=== PATIENT | male | born 1975 | race African-American/Black ===

== ENCOUNTER 2022-04-24 22:08 | Emergency (ER) | payer OTHER ==
[~2022-04-24] VITALS: Ht 172.7 cm; Wt 109.0 kg
[~2022-04-24 22:08] MED LIST: BENADRYL
[2022-04-24 23:39] VITALS: BP 144/88
[2022-04-24] MEDS ORDERED: TETANUS, DIPHTHERIA, PERTUSSIS VAC/PF 0.5ML (>10YR OLD) IM ONE (23:45)
[2022-04-25] MEDS ORDERED: TETANUS, DIPHTHERIA, PERTUSSIS VAC/PF 0.5ML (>10YR OLD) IM ONE (02:00)
[2022-04-25 05:25] LABS: CLARITY URINE CLEAR (CLEAR); COLOR URINE YELLOW (YELLOW); PH URINE 5.5 (4.5-8.0); SPECIFIC GRAVITY URINE 1.018 (1.005-1.030)
[2022-04-25 05:26] LABS: KETONES URINE TRACE (NEGATIVE); LEUKOCYTE ESTERASE URINE NEGATIVE (NEGATIVE); NITRITE URINE NEGATIVE (NEGATIVE); OCCULT BLOOD URINE NEGATIVE (NEGATIVE); PROTEIN URINE NEGATIVE (NEGATIVE); UROBILINOGEN URINE 0.2 E.U./dL (0.2-1.0)
== END 2022-04-25 03:00 | disposition home or self-care (01) ==
LOC: ER 22:08
DX: S90.02XA Contusion of left ankle, initial encounter (principal); S30.812A Abrasion of penis, initial encounter; X58.XXXA Exposure to other specified factors, initial encounter; Y93.89 Activity, other specified; Y92.9 Unspecified place or not applicable
CPT/HCPCS: 73610; 73630; 81003; 90471; 90715; 99284

== ENCOUNTER 2023-10-16 07:08 | Emergency (ER) | payer MEDICAID, OTHER ==
[~2023-10-16] VITALS: Ht 167.6 cm; Wt 111.0 kg
[2023-10-16 07:31] VITALS: BP 162/105; PULSE 85; RESP 18; TEMP 97.9; O2SAT 96
[2023-10-16] MEDS ORDERED: NAPR500T7 MT (08:21)
== END 2023-10-16 09:15 | disposition home or self-care (01) ==
LOC: ER 07:08
DX: M25.511 Pain in right shoulder (principal); M79.601 Pain in right arm; F12.10 Cannabis abuse, uncomplicated; E11.9 Type 2 diabetes mellitus without complications; I10 Essential (primary) hypertension; V49.40XA Driver injured in collision with unspecified motor vehicles in traffic accident, initial encounter; Y93.89 Activity, other specified; Y92.89 Other specified places as the place of occurrence of the external cause; Y99.8 Other external cause status
CPT/HCPCS: 99282